=== PATIENT | male | born 1990 | race Two or more races ===

== ENCOUNTER 2020-05-12 09:36 | Outpatient (REF) | payer OTHER, SELFPAY | END 2020-05-12 09:37 | disposition home or self-care (01) | LOC: HO.LAB 09:36 | PROVIDERS: Visit Provider Internal Medicine | DX: Z20.822 Contact with and (suspected) exposure to COVID-19 (principal) | CPT/HCPCS: 36415; C9803; U0003; U0005 ==

== ENCOUNTER 2021-03-16 07:39 | Outpatient (REF) | payer OTHER, SELFPAY ==
--- NOTE | ~2021-03-16 | XR_ITS ---
EXAMINATION:XR ankle RT min 3V CLINICAL INFORMATION: Pain COMPARISON: None TECHNIQUE: AP, lateral, and mortise views of the ankle. FINDINGS: There is no fracture or dislocation. Ankle mortise is preserved. Tibial plafond and talar dome are intact. Medial and lateral malleoli are properly aligned. Subtalar joint is normal. There is no osteolytic or osteoblastic lesions. XR/XR ankle RT min 3V IMPRESSION: No radiographic evidence of acute fracture.
== END 2021-03-16 07:40 | disposition home or self-care (01) ==
LOC: HO.HOSX 07:39
PROVIDERS: Visit Provider Physician Assistant
DX: S82.61XA Displaced fracture of lateral malleolus of right fibula, initial encounter for closed fracture (principal)
CPT/HCPCS: 73610; 99202

== ENCOUNTER 2021-04-03 10:00 | Outpatient (RCR) | payer OTHER, SELFPAY ==
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
--- NOTE | 2021-05-05 13:25 | MHC.PT.DC ---
[facility] [place] Office [place] Office [place] Office [address] Michele Morales [address] [phone] F: [phone] F: [phone] F: [phone] F: [phone] Physical Therapy Discharge Report Diagnosis: DISPLACED FX OF LATERAL MALLEOLUS OF R FIBULA Date of Surgery: NA Date of Evaluation: 03/31/21 Date of Discharge: 05/05/21 Treatments to Date: 2 Cancellations to Date: No Shows to Date: Discharge Status: Patient Elected to Stop Discharge Summary: Pt SEEN FOR INIT EVAL, 1 FU VISIT, THEN NO SHOWED LAST SCHEDULED VISIT WITHOUT FURTHER APPTS SCHEDULES. PER ASSESSMENT AT [facility] APPT GOOD PERF STRETCHES AND EXS WITHOUT C/O INCREASE IN PAIN, CHALLENGED WITH PROP WORK'. PER ORTHO NOTE FROM 04/13/21 'He states that he feels as though he has returned back to baseline with no pain or difficulty with ambulation. Patient has been able to ambulate without any assistive devices. He you is wearing a normal walking shoe. He will return to work full-time regular duty beginning Saturday04/19/2021. He will follow-up p.r.n., sooner if needed. Electronically signed by: CHRISS JONES PT Please sign and return to therapist. Thank you for your referral.
== END 2021-05-05 13:27 | disposition home or self-care (01) ==
LOC: HO.PT 10:00
PROVIDERS: Visit Provider Physician Assistant
DX: S82.61XD Displaced fracture of lateral malleolus of right fibula, subsequent encounter for closed fracture with routine healing (principal)
CPT/HCPCS: 97110; 97161; 97530; 97535

== ENCOUNTER → 2021-04-13 15:10 | Outpatient (BNVA) | payer OTHER, SELFPAY | PROVIDERS: Visit Provider Physician Assistant | DX: S82.61XD Displaced fracture of lateral malleolus of right fibula, subsequent encounter for closed fracture with routine healing (principal) | CPT/HCPCS: 99212 ==

== ENCOUNTER 2021-07-19 07:48 | Outpatient (REF) | payer OTHER, SELFPAY ==
[2021-07-19 08:10] LABS: COVID-19 Test Positive (Negative)
== END 2021-07-19 07:49 | disposition home or self-care (01) ==
LOC: HO.LAB 07:48
PROVIDERS: Visit Provider Internal Medicine
DX: Z20.822 Contact with and (suspected) exposure to COVID-19 (principal)
CPT/HCPCS: 87635; C9803

== ENCOUNTER 2021-07-21 12:53 | Outpatient (REF) | payer OTHER, SELFPAY ==
[2021-07-21 13:19] LABS: COVID-19 Test Negative (Negative)
== END 2021-07-21 12:54 | disposition home or self-care (01) ==
LOC: HO.LAB 12:53
PROVIDERS: Visit Provider Internal Medicine
DX: Z20.822 Contact with and (suspected) exposure to COVID-19 (principal)
CPT/HCPCS: 87635; C9803

== ENCOUNTER 2021-08-27 07:33 | Emergency (ER) | payer OTHER, SELFPAY ==
--- NOTE | ~2021-08-27 | CT_ITS ---
EXAMINATION: CT FACIAL BONES WITH CONTRAST CLINICAL INFORMATION: Right facial swelling and dental pain. Evaluate for edema or abscess. COMPARISON: Head CT from 09/27/2016. TECHNIQUE: Multidetector CT imaging examination of the maxillofacial region performed with intravenous administration of 85 mL Omnipaque 300. This CT examination was performed using dose optimization techniques as appropriate, variously including the following: *Automated exposure control *Adjustment of mA and/or kV according to patient size (this includes techniques or standardized protocols for targeted exams where dose is matched to indication/reason for exam; i.e. extremities or head) *Use of iterative reconstruction technique DLP: 432 mGy-cm FINDINGS: There is periodontal disease. More specifically, there are periapical lucencies around roots of the right first and second right maxillary molar teeth resulting in dehiscence, disruption of the floor of the right maxillary sinus. There is a dental caries of the right first maxillary molar tooth. The right maxillary sinus is completely opacified and has slightly heterogeneous attenuation. The ostium of the maxillary sinus is occluded. There is opacification of some of the adjacent right ethmoid air cells. A mucus retention cyst is present at the floor of the left maxillary sinus. Otherwise, paranasal sinuses are well aerated and without air-fluid levels. There is subtle hypoattenuation from likely small abscess along the surface of the right maxillary bone lateral to the first molar tooth. This suspected abscess measures approximately 0.3 x 1 cm. There is associated edema of soft tissues of the right face, consistent with cellulitis. The globes and orbital pascual, including lamina papyracea, are intact. The orbital apex, optic canals, and retrobulbar fat planes are normal. The mandible and temporomandibular joints are intact. Nasal bones, pterygoid plates and zygomatic arches are normal. The visualized portions of the brain have normal attenuation. No extra-axial fluid collection. CT/CT facial bones w con IMPRESSION: Dental caries of the right maxillary first molar tooth, periapical lucencies around roots of the right molar teeth, and complete opacification of the right maxillary sinus. This likely represents odontogenic maxillary sinusitis. Also, there appears to be a small odontogenic abscess and cellulitis of the right face.
[2021-08-27 08:16] VITALS: BP 123/78; PULSE 78; RESP 18; TEMP 36.5; O2SAT 99; BMI 26.7
--- NOTE | 2021-08-27 09:16 | ED_ITS ---
HPI - Dental/Oral General Chief complaint: Dental/Oral Stated complaint: tooth/ear pain. R side of face swollen Time Seen by Provider: 08/27/21 09:07 Source: patient Mode of arrival: ambulatory History of Present Illness HPI Narrative: 31-year-old male with no significant past medical history presenting to the ED complaining of right upper dental pain and right-sided facial swelling x 4-5 days. Reports tooth broke last week, then was seen at urgent care yesterday and prescribed amoxicillin without improvement. Reports facial swelling is worsening. Denies fever, chills, drainage from area, ear pain, sore throat, difficulty swallowing MD Complaint: tooth pain Related Data Previous Rx's Medication Instructions Recorded amoxicillin 875 mg-potassium 1 tab PO BID 7 days #14 tabs 08/27/21 clavulanate 125 mg tablet hydrocodone 5 mg-acetaminophen 325 1 tab PO Q8H PRN pain, severe 3 08/27/21 mg tablet days #9 tabs ibuprofen 800 mg tablet 800 mg PO Q8H PRN pain #14 tabs 08/27/21 Allergies Allergy/AdvReac Type Severity Reaction Status Date / Time No Known Allergies Allergy Verified 08/27/21 08:15 [No Known Allergies*] Review of Systems Review of Systems: Constitutional: No Fever, No Chills ENT/Mouth: No Ear Pain, No Nasal Congestion, No Sinus Pain, No Hoarseness, + dental pain, +facial swelling, No sore throat, No Rhinorrhea, No Swallowing Difficulty Cardiovascular: No Chest Pain, No SOB Respiratory: No Cough, No Sputum Gastrointestinal: No Nausea, No Vomiting, No Diarrhea, No Constipation, No A bdominal pain Genitourinary: No Dysuria, No Urgency, No Flank Pain Musculoskeletal: No joint pain, No Myalgias, No Joint Swelling Skin: No Skin Lesions, No rash Neuro: No Weakness Yes all other systems are reviewed and are negative [facility] Past Medical History Attestation statement: The following information was validated with the patient. 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 Right upper 2nd molar cracked, no visible pulp, +tenderness with gingival swelling and small area of fluctuance noted. No pointing, no drainage, no induration Head: Yes normal to inspection and Yes atraumatic Ears: hearing grossly normal bilaterally, external ears normal and TM's normal bilaterally General nose exam: Normal external nose present Mouth: Normal oral and palatal mucosa present Throat: Yes posterior oropharynx normal, Yes tonsils normal, Yes uvula midline and No peritonsillar mass Eyes: General: appearance normal, both eyes and all related structures EOM: EOMs intact bilaterally Neck: Neck: Yes normal visual inspection, Yes full ROM, Yes no lymphadenopathy, Yes no meningeal signs and No anterior neck swelling Resp: Effort & Inspection: normal respiratory effort, no respiratory distress, no stridor, not tachypneic and no tripod positioning Auscultation: clear to auscultation bilaterally Cardio: Rate: regular rate Heart sounds: S1 normal heart sound present and S2 normal heart sound present Skin: Rashes: no rashes Wounds: no wounds Neuro: General: patient oriented x3, tone normal and no meningeal signs Gait exam (Neuro): Normal gait present Extrem: General: Yes normal to inspection Course Course Course Narrative: -no leukocytosis. CRP mildly elevated, labs otherwise unremarkable CT facial bones w con IMPRESSION: Dental caries of the right maxillary first molar tooth, periapical lucencies around roots of the right molar teeth, and complete opacification of the right maxillary sinus. This likely represents odontogenic maxillary sinusitis. Also, there appears to be a small odontogenic abscess and cellulitis of the right face. >> performed I&D in the ED with needle aspiration obtained about 1 cc of pus/bloody drainage. Will change patient's antibiotics to Augmentin. Just filled chlorhexidine rinse yesterday from , encouraged to use as well as warm salt water rinses, patient was supplied with dentistry list, is to have close follow-up MDM - Dental/Oral MDM Narrative Medical decision making narrative: 31-year-old male with no significant past medical history presenting to the ED complaining of right upper dental pain and right-sided facial swelling x 4-5 days. On exam vital signs stable, NAD, nontoxic appearing, physical exam as above. Concern for right-sided dental abscess vs edema/infection. Plan: Labs, CT facial bones for further evaluation if drainable collection, IV [facility]as[facility] Medical Records Attestation: I reviewed the patient's medical records. Lab Data Attestation: I reviewed the patient's lab results. Result diagrams: 08/27/21 09:34 08/27/21 09:34 Labs: Lab Results 08/27/21 08/27/21 08/27/21 Range/Units 09:34 09:34 09:34 WBC 10.0 (4.8-10.8) X10*3/uL RBC 4.57 L (4.60-5.80) X10*6/uL Hgb 14.2 (14.0-18.0) g/dl Hct 42.4 (42.0-52.0) % MCV 92.8 (80.0-98.0) fL MCH 31.1 (27.0-33.0) pg MCHC 33.5 (31.0-36.0) g/dl RDW 12.5 (11.0-16.0) % Plt Count 147 L (160-400) X10*3/uL MPV 10.7 (9.4-12.4) fL Immature Gran % (Auto) 0.4 (0.0-0.4) % Neut % (Auto) 72.3 (45-73) % Lymph % (Auto) 17.0 L (20-40) % [place] % (Auto) 9.7 (2-11) % Eos % (Auto) 0.4 (0-4) % Baso % (Auto) 0.2 (0-2) % Lymph # (Auto) 1.7 (1.2-4.9) X10*3/uL [place] # (Auto) 1.0 (0.1-1.2) X10*3/uL Eos # (Auto) 0.0 (0.0-0.4) X10*3/uL Baso # (Auto) 0.0 (0.0-0.2) X10*3/uL Abs Immat Gran (auto) 0.04 H (0.00-0.03) X10*3/uL Absolute Neuts (auto) 7.3 (2.0-8.3) x10*3/uL Absolute Nucleated RBC 0.000 (0.0-0.012) X10*3/uL Nucleated RBC % (auto) 0.0 (0.0-0.2) /100WBC ESR 14 (0-15) MM/HR Sodium 139 (135-145) mmol/L Potassium 4.1 (3.3-5.1) mmol/L Chloride 105 (96-108) mmol/L Carbon Dioxide 26 (22-29) mmol/L Anion Gap 12 (12-20) BUN 9 (9-16) mg/dL Creatinine 0.75 (0.5-1.4) mg/dL Estim Creat Clear Calc 135.8 Estimated GFR > 60 Random Glucose 91 (60-115) mg/dL Calcium 9.2 (8.4-10.2) mg/dL C-Reactive Protein 4.23 H (< or = 0.50) mg/dL Procedures Abscess I/D Site: oral Side (if applicable): right Local Anesthetic: lidocaine 1% Amount of anesthesia used (mL): 1 Technique: needle aspiration Amount of fluid expressed (mL): 1 Packing used?: none Discharge Plan Discharge Clinical Impression: Dental abscess, Facial cellulitis Patient Disposition: Home, Self-Care Instructions: Dental Abscess (ED), Cellulitis (ED) Additional Instructions: You have a dental abscess as well as facial cellulitis. Stop taking previously prescribed amoxicillin and start taking Augmentin. Use chlorhexidine rinse that he picked up yesterday. You need to follow-up with a dentist, start calling tomorrow to get an appointment as soon as possible. [place] is an opiate pain medication, take only when pain is severe. Be aware [place] was Tylenol mixed into not exceed 4 g of Tylenol in 1 day In addition take ibuprofen. If symptoms persist or worsen, you have fever, persistent or worsening swelling return to the emergency department Prescriptions: New ibuprofen 800 mg tablet 800 mg PO Q8H PRN (Reason: pain) Qty: 14 0RF hydrocodone-acetaminophen 5-325 mg tablet 1 tab PO Q8H PRN (Reason: pain, severe) 3 Days Qty: 9 0RF Rx Instructions: Partial Fill upon patient request. amoxicillin-pot clavulanate 875-125 mg tablet 1 tab PO BID 7 Days Qty: 14 0RF Referrals: Manuel Nava, DICK [Dentist] - Samuel Barraza, DICK [Dentist] - Evi Lyons DMD [Dentist] - Herman Almodovar DDS [Physician] - Stand Alone Forms: Work/School Release
[2021-08-27 09:39] LABS: MANUAL DIFF FLAG NO
[2021-08-27 09:47] LABS: Basophils Percent Auto 0.2 % (0-2); Eosinophils Percent Auto 0.4 % (0-4); Hematocrit 42.4 % (42.0-52.0); Hemoglobin 14.2 g/dl (14.0-18.0); Imm Gran Abs Auto 0.04 X10*3/uL (0.00-0.03); Imm Gran Pct Auto 0.4 % (0.0-0.4); Lymphocytes Absolute Auto 1.7 X10*3/uL (1.2-4.9); Mean Corpuscular HGB Conc 33.5 g/dl (31.0-36.0); Mean Corpuscular Hemoglobin 31.1 pg (27.0-33.0); Mean Corpuscular Volume 92.8 fL (80.0-98.0); Mean Platelet Volume 10.7 fL (9.4-12.4); Monocytes Percent Auto 9.7 % (2-11); Neutrophils Absolute Auto 7.3 x10*3/uL (2.0-8.3); Neutrophils Percent Auto 72.3 % (45-73); Platelet Count 147 X10*3/uL (160-400); Red Blood Count 4.57 X10*6/uL (4.60-5.80); Red Cell Distribution Width 12.5 % (11.0-16.0)
[2021-08-27] MEDS: Ampicillin Sodium/Sulbactam Na 3 GM in 0.9 % Sodium Chloride 100 ML IV (09:48)
[2021-08-27] MEDS: 0.9 % Sodium Chloride 1,000 ML 999 ML IV (09:51)
[2021-08-27 09:56] LABS: Anion Gap 12 (12-20); Blood Urea Nitrogen 9 mg/dL (9-16); C Reactive Protein 4.23 mg/dL (< or = 0.50); Calcium 9.2 mg/dL (8.4-10.2); Carbon Dioxide 26 mmol/L (22-29); Chloride 105 mmol/L (96-108); Creatinine Clr Calc Pharmacy 135.8; Estimated Glomerular Filt Rate > 60; Glucose Random 91 mg/dL (60-115); Potassium 4.1 mmol/L (3.3-5.1); Sodium 139 mmol/L (135-145)
[2021-08-27] MEDS: iohexoL 300 MG/ML 100 ML INFUS..BTL IV (10:17)
[2021-08-27 10:23] LABS: Erythrocyte Sedimentation Rate 14 MM/HR (0-15)
[2021-08-27] MEDS: Lidocaine HCl 1 % MPF 5 ML VIAL SUBCUT (12:00)
[2021-08-27 12:39] VITALS: BP 140/88; PULSE 76; RESP 16; TEMP 37.1; O2SAT 100
== END 2021-08-27 12:55 | disposition home or self-care (01) ==
PROVIDERS: Physician Assistant; Emergency Provider Emergency Medicine Emergency Medical Services
DX: K04.7 Periapical abscess without sinus (principal); L03.211 Cellulitis of face
CPT/HCPCS: 36415; 41800; 70487; 80048; 85025; 85652; 86140; 96365; 96366; 99284; J0295; Q9967

== ENCOUNTER 2022-09-18 10:40 | Outpatient (AMB) | payer OTHER, SELFPAY ==
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
[2022-09-18 10:44] VITALS: BP 128/82; PULSE 85; TEMP 36.8; O2SAT 99
== END 2022-09-18 11:29 | disposition home or self-care (01) ==
PROVIDERS: Visit Provider Internal Medicine
DX: M54.6 Pain in thoracic spine (principal)
CPT/HCPCS: 99213

== ENCOUNTER 2023-07-01 12:34 | Outpatient (REF) | payer MEDICAID, SELFPAY ==
[2023-07-01 14:50] LABS: MANUAL DIFF FLAG NO
[2023-07-01 14:55] LABS: Basophils Percent Auto 0.5 % (0-2); Eosinophils Absolute Auto 0.1 X10*3/uL (0.0-0.4); Eosinophils Percent Auto 1.2 % (0-4); Hematocrit 42.2 % (42.0-52.0); Hemoglobin 14.3 g/dl (14.0-18.0); Imm Gran Abs Auto 0.02 X10*3/uL (0.00-0.03); Imm Gran Pct Auto 0.3 % (0.0-0.4); Lymphocytes Absolute Auto 2.3 X10*3/uL (1.2-4.9); Lymphocytes Percent Auto 38.4 % (20-40); Mean Corpuscular HGB Conc 33.9 g/dl (31.0-36.0); Mean Corpuscular Hemoglobin 31.4 pg (27.0-33.0); Mean Corpuscular Volume 92.7 fL (80.0-98.0); Mean Platelet Volume 11.7 fL (9.4-12.4); Monocytes Absolute Auto 0.6 X10*3/uL (0.1-1.2); Monocytes Percent Auto 9.6 % (2-11); Platelet Count 150 X10*3/uL (160-400); Red Blood Count 4.55 X10*6/uL (4.60-5.80); Red Cell Distribution Width 12.8 % (11.0-16.0); White Blood Count 5.9 X10*3/uL (4.8-10.8)
[2023-07-01 15:19] LABS: Alanine Aminotransferase 12 U/L (0-40); Albumin Level 4.3 g/dL (3.5-5.0); Alkaline Phosphatase 78 U/L (39-117); Anion Gap 11 (12-20); Aspartate Amino Transferase 17 U/L (5-37); Bilirubin Total 0.6 mg/dL (0.0-1.0); Blood Urea Nitrogen 12 mg/dL (9-16); Calcium 9.4 mg/dL (8.4-10.2); Carbon Dioxide 23 mmol/L (22-29); Chloride 109 mmol/L (96-108); Cholesterol 170 mg/dL (<200); Estimated Glomerular Filt Rate > 60; Glucose Random 97 mg/dL (60-115); HDL Cholesterol 58 mg/dL (>40); LDL Cholesterol Calculated 103 mg/dL (<100); Sodium 139 mmol/L (135-145); Total Protein 7.1 g/dL (6.5-8.0); Triglycerides 49 mg/dL (<150)
[2023-07-01 15:27] LABS: TSH reflex Free T4 1.38 uIU/mL (0.32-4.0)
[2023-07-02 04:28] LABS: ~HepC Num1 0.39 S/CO (0.00-0.79); ~Hepatitis C Antibody Nonreactive (Nonreactive)
[2023-07-04 09:39] LABS: HIV RNA PCR Qn Copies Not Detected Copies/mL; HIV RNA PCR Qn Log Copies Not Detected Log cps/mL
== END 2023-07-01 12:35 | disposition home or self-care (01) ==
LOC: HO.CHCLDS 12:34
PROVIDERS: Visit Provider Internal Medicine
DX: Z13.6 Encounter for screening for cardiovascular disorders (principal); Z11.4 Encounter for screening for human immunodeficiency virus [HIV]; I35.0 Nonrheumatic aortic (valve) stenosis
CPT/HCPCS: 36415; 80053; 80061; 84443; 85025; 86803; 87536; 87900

== ENCOUNTER 2023-07-26 13:32 | Outpatient (REF) | payer MEDICAID, SELFPAY ==
--- NOTE | ~2023-07-26 | XR_ITS ---
EXAMINATION: XR WRIST, LEFT CLINICAL INFORMATION: Wrist pain post fall COMPARISON: None available. TECHNIQUE: PA, lateral, navicular and oblique views of the left wrist. FINDINGS: The bones and soft tissues are normal. No fracture. Alignment is anatomic with normal joint spaces. No erosions or abnormal soft tissue calcifications. XR/XR wrist LT min 3V IMPRESSION: No acute fracture or subluxation of the left wrist.
== END 2023-07-26 13:33 | disposition home or self-care (01) ==
LOC: HO.HHCX 13:32
PROVIDERS: Visit Provider Internal Medicine
DX: M25.532 Pain in left wrist (principal)
CPT/HCPCS: 73110

== ENCOUNTER → 2023-10-09 14:51 | Outpatient (REF) | payer MEDICAID, SELFPAY ==
--- NOTE | 2023-10-09 14:53 | CA_ITS ---
Transthoracic Echocardiogram Patient (Last, First, Middle): Owen Leslie, Gender: Male Date of : 1990 Age: 33 Procedure Date: 10/09/2023 Procedure Type: Transthoracic Echocardiogram Location: OP Height: 170.18 cm Weight: 64.41 kg BSA: 1.75 m2 Heart Rate: bpm BP: 102 / 70 mmHg Ultrasonic Tester: ELTON Referring MD: Raheem Herbert MD Disability Attorney: Ramana Joseph MD Symptoms: AORTIC VALVE D/O I35.9 Study Quality: Adequate ECG Rhythm: Sinus Conclusions: - 1. Bicuspid aortic valve with moderate aortic stenosis 2. Normal LV systolic function with LVEF of 65-70% 3. Mildly dilated ascending aorta at 3.8 cm 4. No gross pericardial effusion Findings Left Ventricle Normal left ventricular size, thickness, and systolic function. The visually estimated ejection fraction is between 65-70%. Spectral Doppler is indicative of a normal filling pattern. Right Ventricle Normal right ventricular cavity size and systolic function. Atria Both atria are normal in size. There is no evidence of interatrial shunt. Aortic Valve There is a bicuspid aortic valve. There is mild calcification of the aortic valve. There is moderate aortic valve stenosis. The peak aortic velocity is 3.28 m/s with a calculated peak gradient of 43 mmHg. The mean gradient is 25 mmHg. The aortic valve area is 1.09 cm2. There is no aortic valve regurgitation. Mitral Valve Normal mitral valve structure and function. There is trace mitral valve regurgitation. There is no mitral valve stenosis. Pulmonic Valve The pulmonic valve is likely normal. Tricuspid Valve Normal tricuspid valve structure. Tricuspid regurgitation envelope is inadequate for calculation of right ventricular systolic pressure. Low right atrial pressure. Great Vessels The pulmonary artery was not well visualized. There is mild dilatation of the ascending aorta measuring 3.80 cm. Venous The inferior vena cava is collapsed, consistent with reduced intravascular volume. Pericardium/Pleural There is no evidence of pericardial effusion. Prior Study Comparison No prior study available for comparison. Measurements 2D Linear Measurements IVSd: 0.97 0.6-0.9/0.6-1.0 cm LVIDd: 4.06 3.9-5.3/4.2-5.9 cm LVIDd Index: 2.32 2.4-3.2/2.2-3.1 cm/m2 LVIDs: 2.26 2.0-3.6 cm LVPWd: 1.04 0.7-1.1 cm LA Diam: 2.90 2.7-3.8/3.0-4.0 cm LAIDs Index: 1.66 1.5-2.3 cm/m2 LV Mass: 162.42 67-162/88-224 g LV Mass Index: 92.81 43-95/49-115 g/m2 LVOT Diam: 1.90 3.0+(-)1.3 cm 2D Systolic Function EF 4C: 69.40 >55% EF 2C: 69.40 >55% EF BiP: 68.90 >55% Mitral Valve MV Pk E: 0.85 MV PK A: 0.61 MV Decel Time: 230.00 E/A: 1.40 E'Lateral: 13.30 E'Medial: 9.68 E/E' Med: 8.80 E/E' Lat: 6.40 PHT: 67.00 MVA PHT: 3.28 Decel [place]: 3.69 Aortic Valve AoV Pk Cristofer: 3.28 AoV Mn Cristofer: 2.36 AoV VTI: 0.78 AoV Pk Grad: 43.00 Aov Mn Grad: 25.00 LULU Cont.VTI: 1.09 LVOT LVOT Pk Cristofer: 1.32 LVOT Mn Cristofer: 0.88 LVOT VTI: 0.30 LVOT Pk Grad: 7.00 LVOT Mn Grad: 4.00 LVOT Diam: 1.90 LVOT Area: 2.84 Diastolic Function MV Pk E: 0.85 MV Pk A: 0.61 E/A: 1.40 E'Medial: 9.68 E/E' Med: 8.80 E' Laterial: 13.30 E/E' Lat: 6.40 Right Ventricle TAPSE (mm): 29.50 TVS' Cristofer: 14.80 Tricuspid Valve RA Press: 3.00 Great Vessels Aorta Sinus of Valsalva: 2.87 2.0-3.[address] [place]: 2.39 1.7-3.4 cm Ao Asc: 3.80 2.1-3.4 cm Updated in Other Vendor System with Status of Final Ramana Joseph MD electronically signed on 10/10/2023 11:28:49 AM with status of Final
== END ==
LOC: HO.CARD 14:51
PROVIDERS: PCP Internal Medicine; Visit Provider Internal Medicine
DX: I35.9 Nonrheumatic aortic valve disorder, unspecified (principal)
CPT/HCPCS: 93306

== ENCOUNTER → 2023-10-09 14:53 | Outpatient (BNV) | payer MEDICAID, SELFPAY | PROVIDERS: PCP Internal Medicine; Visit Provider Internal Medicine Cardiovascular Disease | DX: Q23.1 Congenital insufficiency of aortic valve (principal); Q23.0 Congenital stenosis of aortic valve | CPT/HCPCS: 93303; 93320; 93325 ==

== ENCOUNTER 2024-03-09 14:02 | Outpatient (AMB) | payer MEDICAID, SELFPAY ==
[2024-03-09 14:04] VITALS: BP 120/80; PULSE 67; BMI 21.4
--- NOTE | 2024-03-09 14:04 | MHC.OFFVIS ---
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 He is a pleasant 33-year-old male who is currently no symptoms. He remains active although he is not currently exercising. He is planning to join a gym in the next week or so. He takes antibiotics for bicuspid aortic valve. He is known to have bicuspid aortic valve since he was a child and last seen in [facility] pediatric clinic and cardiology clinic in 2008. At that time he had bicuspid aortic valve with mild stenosis. More recently had an echocardiogram which showed bicuspid aortic valve with moderate stenosis with mean gradient of 23 mm Hg. He denies any lightheadedness, syncope. Denies any exertional chest pain or shortness of breath. Denies any orthopnea, PND. Denies any prolonged palpitation irregular heartbeat. Smokes marijuana every day. Denies any significant tobacco use or alcohol use. [facility] Medical History Aortic stenosis Family History Father No problems noted. Mother No problems noted. 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 Review of Systems Const Denies chills, Denies fatigue, Denies fever(s), Denies frequent falls, Denies weakness, Denies weight gain and Denies weight loss Eyes Denies loss of vision ENT Denies dizziness Card Denies chest pain, Denies leg edema, Denies lightheadedness, Denies palpitations, Denies dyspnea, Denies dyspnea on exertion, Denies orthopnea and Denies other (loss of consciousness) Resp Denies cough, Denies dyspnea, Denies dyspnea on exertion and Denies wheezing GI Denies hematochezia and Denies change in stool character Denies dysuria and Denies urinary frequency Musc Denies abnormal gait, Denies muscle weakness, Denies numbness, Denies radiating pain into limb and Denies tingling Skin/Breast Denies nail changes and Denies rash Neuro Denies abnormal gait, Denies dizziness, Denies frequent falls, Denies loss of vision, Denies memory loss, Denies numbness, Denies tingling and Denies weakness Psych Denies depression and Denies memory loss Endo Denies fatigue and Denies palpitations Sudhir/Lymph Reports easy bruising and Reports other (anemia) Aller/Immun Denies wheezing Physical Exam Vital Signs: Last Vital Signs Pulse 67 03/09/24 14:04 BP 120/80 03/09/24 14:04 BMI result Body Mass Index 21.4 Const General: cooperative, comfortable, no acute distress, alert, awake and Physically active Nutritional Appearance: thin Orientation/consciousness: patient oriented x3 Limitations: no limitations HEENT Head: Yes normocephalic and Yes atraumatic Neck Neck: Yes trachea midline, Yes supple and Yes no JVD Carotids: normal carotid upstroke and no bruits Chest Chest palpation & inspection: normal inspection of the chest Resp Effort & Inspection: normal respiratory effort Auscultation: clear to auscultation bilaterally Cardio Jugular venous distension: no JVD Palpation: normal PMI Rate: regular rate Rhythm: regular rhythm Heart sounds: S1 normal heart sound present, S2 normal heart sound present, no click, no gallops and Murmur heart sound present systolic mid, decrescendo, crescendo and harsh GI Auscultation: normal bowel sounds Skin General skin exam: no rashes or lesions noted Neuro General: patient oriented x3 and no focal motor deficits Extrem General: Yes no clubbing, cyanosis or edema Psych Appearance: grossly normal Office Procedures EKG Details: EKG shows normal sinus rhythm with normal EKG with sinus arrhythmia 18282-[id number], Complete Assessment & Plan Assessment & Plan (1) Aortic stenosis: Code(s): I35.0 - Nonrheumatic aortic (valve) stenosis Category: Medical Plan: Aortic stenosis, due to bicuspid aortic valve, congenital abnormality. He was moderate aortic stenosis. Currently he is completely asymptomatic. We discussed about pathophysiology of bicuspid aortic valve an anatomic abnormality associated with it and associated aortic stenosis and pathophysiology. Discussed about cardinal symptoms associated with aortic stenosis. Advised to call me with any new exertional symptoms. Recommend to initiate exercise program gradually and buildup gradually. Recommend low-dose aspirin therapy. Continue SBE prophylaxis as per ACC/aha guidelines. Gradual progressive nature of aortic stenosis were discussed. Follow-up echocardiogram on annual basis, next echocardiogram September of 2024. Follow up in the clinic in 8 months. Management of aortic stenosis and requirement for surgical intervention in the future was discussed with him. Follow up in the clinic in 8 months time, sooner p.r.n.. Thank you for allowing me to partake in his care Orders: Orders CA echo transthoracic complete 7 Months I35.0 - Nonrheumatic aortic (valve) stenosis Medications: New aspirin (Ecotrin Low Strength) 81 mg PO DAILY 30 tabs 11RF Coding Level of Care Code New Pt Level 4 (52813) Complex EM visit Add On G2211 Diagnoses Aortic stenosis I35.0 CPT Codes EKG - CPT: 78459-[id number], Complete ([id number])
== END 2024-03-09 14:46 | disposition home or self-care (01) ==
PROVIDERS: PCP Internal Medicine; Visit Provider Internal Medicine Cardiovascular Disease
DX: I35.0 Nonrheumatic aortic (valve) stenosis (principal); I49.9 Cardiac arrhythmia, unspecified
CPT/HCPCS: 93010; 99214

== ENCOUNTER → 2024-03-09 14:02 | Outpatient (BNVA) | payer MEDICAID, SELFPAY | PROVIDERS: PCP Internal Medicine; Visit Provider Internal Medicine Cardiovascular Disease | DX: I35.0 Nonrheumatic aortic (valve) stenosis (principal) | CPT/HCPCS: 93005; 99212 ==

== ENCOUNTER → 2024-10-07 13:59 | Outpatient (REF) | payer MEDICAID, SELFPAY ==
--- NOTE | 2024-10-07 14:02 | CA_ITS ---
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 Normal LV systolic and diastolic function with LVEF of 65 70% 2. Bicuspid aortic valve with moderate aortic stenosis 3. Normal RV systolic pressure 4. Mildly dilated ascending aorta at 3.7 cm 5. No gross pericardial effusion Findings Left Ventricle Normal left ventricular size, thickness, and systolic function. The visually estimated ejection fraction is between 65-70%. Diastolic function is normal for age. Right Ventricle Normal right ventricular cavity size and systolic function. Atria Both atria are normal in size. There is no evidence of interatrial shunt. Aortic Valve There is a bicuspid aortic valve. There is moderate aortic valve stenosis. The mean gradient is 19 mmHg. The aortic valve area is 1.27 cm2. There is no aortic valve regurgitation. Mitral Valve Normal mitral valve structure and function. There is trace mitral valve regurgitation. There is no mitral valve stenosis. Pulmonic Valve The pulmonic valve is likely normal. There is trace pulmonic valve regurgitation. Tricuspid Valve Normal tricuspid valve structure. There is trace tricuspid valve regurgitation. The right ventricular systolic pressure is normal. The right ventricular systolic pressure is 18 mmHg. Normal right atrial pressure. There is no evidence of pulmonary hypertension. Great Vessels There is mild dilatation of the ascending aorta measuring 3.70 cm. Venous The inferior vena cava is normal in size and collapses greater than 50% with inspiration. Pericardium/Pleural There is no evidence of pericardial effusion. Prior Study Comparison No significant change compared to prior study dated: 10/09/2023. Measurements 2D Linear Measurements IVSd: 1.01 0.6-0.9/0.6-1.0 cm LVIDd: 4.10 3.9-5.3/4.2-5.9 cm LVIDd Index: 2.38 2.4-3.2/2.2-3.1 cm/m2 LVIDs: 2.17 2.0-3.6 cm LVPWd: 0.95 0.7-1.1 cm Ao Root: 2.70 2.1-3.5 cm LA Diam: 2.90 2.7-3.8/3.0-4.0 cm LAIDs Index: 1.69 1.5-2.3 cm/m2 LV Mass: 159.31 67-162/88-224 g LV Mass Index: 92.62 43-95/49-115 g/m2 LVOT Diam: 2.00 3.0+(-)1.3 cm 2D Systolic Function EF 4C: 65.20 >55% EF 2C: 78.90 >55% EF BiP: 71.50 >55% Mitral Valve MV Pk E: 0.91 MV PK A: 0.79 MV Decel Time: 145.00 E/A: 1.10 E'Lateral: 13.10 E'Medial: 9.68 E/E' Med: 9.40 E/E' Lat: 6.90 PHT: 43.00 MVA PHT: 5.12 Decel [place]: 6.25 Aortic Valve AoV Pk Cristofer: 2.93 AoV Mn Cristofer: 1.93 AoV VTI: 0.64 AoV Pk Grad: 34.00 Aov Mn Grad: 19.00 LULU Cont.VTI: 1.27 LVOT LVOT Pk Cristofer: 1.19 LVOT Mn Cristofer: 0.75 LVOT VTI: 0.26 LVOT Pk Grad: 6.00 LVOT Mn Grad: 3.00 LVOT Diam: 2.00 LVOT Area: 3.14 Diastolic Function MV Pk E: 0.91 MV Pk A: 0.79 E/A: 1.10 E'Medial: 9.68 E/E' Med: 9.40 E' Laterial: 13.10 E/E' Lat: 6.90 Right Ventricle TAPSE (mm): 32.00 TVS' Cristofer: 13.00 Tricuspid Valve TR Pk Cristofer: 1.95 TR Pk Grad: 15.00 RA Press: 3.00 RVSP: 18.00 Great Vessels Aorta Ao Root-2D: 2.70 2.0-3.7 cm Ao Asc: 3.70 2.1-3.4 cm Ao Desc: 2.10 Pulmonary Valve PV Pk Cristofer: 1.48 Peak PV Grad: 9.00 Updated in Other Vendor System with Status of Final Ramana Joseph MD electronically signed on 10/08/2024 11:07:46 AM with status of Final
--- OUTSIDE RECORDS SUMMARY | 2024-10-07 14:41 | XMS_ITS | Encounter Summary ---
Author Organization [employer] Address [address] [address] [place] [address] Care Team Providers Care Transmission Assembler Name Role Phone Raheem Bradford MD Primary Care Prov ider Encounter Details Date Type Department Care Team (Late st Contact Info) Description 09/02/2023 Orders Only [facility] [address], [place] [phone] Raheem Bradford MD [address] [place], [place] [phone] Social History Tobacco Use Types Packs/Day Years Used Date Smoking Tobacco: Never Smokeless Tobacco: Never Housing Stability Answer Date Recorded What is your housing situation today? I do not have housing (Staying with others, in a hotel, in a residential, living outside on the street, on a beach, in a car, or in a park 05/23/[address] you li ve. Do you have problems with any of the following? None of the above 05/23/2023 Food Insecurity Answer Date Recorded Within the past 12 months, y ou worried that your food would run out before you got money to buy more: Never True 05/23/2023 Within the past 12 months,th e food you bought just didn't last and you didn't have enough money to get more: Never True Transportation Answer Date Recorded In the past 12 months, has l ack of transportation kept you from medical appts, meetings, work or from getting things needed for daily living? No 05/23/2023 Utilities Answer Date Recorded In the past 12 months, has t he electric, gas, oil or water company threatened to shut off services in your home? No 05/23/2023 Sex and Gender Information Value Date Recorded Sex Assigned at Male 01/08/2022 10:30 AM EDT Legal Sex Male 10:30 AM EDT Gender Identity Male 05/23/2023 2:38 PM EDT Sexual Orientation Straight 05/23/2023 2: 38 PM EDT documented as of this encounter Plan of Treatment Not on file documented as of this encounter Visit Diagnoses Not on filedocumented in this encounter Care Teams Transmission Assembler Relationship Specialty Start Date End Date Raheem Bradford MD [address] [place] [id number] PCP - General Internal Medicine 05/23/23 documented as of this encounter
== END ==
LOC: HO.CARD 13:59
PROVIDERS: PCP Internal Medicine; Visit Provider Internal Medicine Cardiovascular Disease
DX: I35.0 Nonrheumatic aortic (valve) stenosis (principal)
CPT/HCPCS: 93306

== ENCOUNTER → 2024-10-07 14:02 | Outpatient (BNV) | payer MEDICAID, SELFPAY | PROVIDERS: PCP Internal Medicine; Visit Provider Internal Medicine Cardiovascular Disease | DX: I35.0 Nonrheumatic aortic (valve) stenosis (principal); Q23.81 Bicuspid aortic valve | CPT/HCPCS: 93306 ==